=== PATIENT | male | born 1965 | race Hispanic/Latino ===

== ENCOUNTER 2019-10-19 12:45 | Inpatient (IN) | payer OTHER ==
[2019-10-19] MEDS ORDERED: MORPHINE 4 MG/ML SYR ONE (14:13)
[2019-10-19] MEDS ORDERED: ONDANSETRON 4 MG/2 ML VIAL ONE (14:13)
[2019-10-19] MEDS ORDERED: NA CHLORIDE 0.9% 1,000 ML ONE ×2 (14:13→16:35)
[2019-10-19 14:22] LABS: Absolute Lymphocytes (CBC) 4.1 K/uL (0.7-4.9); Basophils % 0.7 % (0-1.3); Hematocrit 47.1 % (39.6-49.0); Lymphocytes % 23.1 % (15.3-44.8); MPV 9.5 fL (7.6-11.3); RBC Red Blood Cell Count 4.77 M/uL (4.33-5.43)
[2019-10-19 14:29] LABS: Urine Blood NEGATIVE (NEG); Urine Glucose NEGATIVE (NEG); Urine Protein TRACE (NEG); Urine Specific Gravity 1.025 (1.005-1.030); Urine pH 5.5 (5.0-7.0)
[2019-10-19 14:36] LABS: Potassium 3.4 mmol/L (3.5-5.1)
--- NOTE | 2019-10-19 15:58 | RAD REPORT ---
EXAM DESCRIPTION: CT - Abdomen Pelvis W Contrast - 10/19/2019 3:34 pm CLINICAL HISTORY: ABD PAIN COMPARISON: No comparisons TECHNIQUE: Biphasic, helical CT imaging of the abdomen and pelvis was performed following 100 ml non -ionic IV contrast. No oral contrast. All CT scans are performed using dose optimization technique as appropriate and may include automated exposure control or mA/KV adjustment according to patient size. FINDINGS: No suspicious findings in the lung bases. Hepatomegaly is present with a mild diffuse fatty infiltration. There is subtle nodularity to the cuca er capsule. No focal liver lesion identified. Portal vein is normal. Patient is status post splenecto my. Small regenerative splenic nodules are present in the left upper quadrant. Gallbladder and biliar y tree are also without suspicious finding. No pancreatic or peripancreatic acute findings. Symmetric renal function is seen with no hydronephrosis or suspicious renal mass. No pyelonephritis o r acute parenchymal process. No bladder abnormalities. No adrenal abnormalities. No gastric abnormality seen. There are several fluid-filled nondilated small bowel loops present. Ter jeremiah ileum and ileocecal valve are normal. There is slight thickening of the tip of the cecum. The a ppendix is grossly abnormal measuring 15 mm in diameter with edematous/inflammatory stranding in the periappendiceal fat as well as wall thickening in the appendix. No appendicolith or mass lesions seen . Appendix is in a classic right lower quadrant location. Several reactive lymph nodes are seen in th e adjacent fat. No free air, abscess or other complicating factor. No hernia, mass or bulky lymphadenopathy. Patien t has nonspecific periaortic lymphadenopathy. No suspicious bony findings. IMPRESSION: Acute appendicitis. No abscess, free air or other complicating factor. Appendix is in a classic right lower quadrant location. Hepatomegaly with subtle nodularity of the liver capsule. No focal liver lesions seen. Cirrhosis or o ther hepatic parenchymal disease process may be present.
--- NOTE | 2019-10-19 16:08 | ER ---
Nurse's Notes [facility] Name: Damon Gomez Age: 54 yrs Sex: Male : 1965 Arrival Date: 10/19/2019 Time: 12:53 Bed 19 Private MD: Diagnosis: Acute appendicitis Presentation: 10/19 13:00 Presenting complaint: Patient states: lower abd pain, n/v started . Transition sv of care: patient was not received from another setting of care. Onset of symptoms was October 17, 2019. Care prior to arrival: None. 13:00 Method Of Arrival: Ambulatory sv 13:00 Acuity: GHADA 3 sv 13:00 Note translator/interpreter used ID#[id number]. sv 13:50 Risk Assessment: Do you want to hurt yourself or someone else? Patient reports no rb1 desire to harm self or others. Initial Sepsis Screen: Does the patient meet any 2 criteria? No. Patient's initial sepsis screen is negative. Does the patient have a suspected source of infection? Yes: Acute abdominal pain. Triage Assessment: 13:00 General: Appears in no apparent distress. uncomfortable, Behavior is calm, cooperative, sv appropriate for age. Pain: Complains of pain in right lower quadrant and left lower quadrant Pain currently is 8 out of 10 on a pain scale. Neuro: Level of Consciousness is awake, alert, obeys commands, Oriented to person, place, time, situation, Gait is steady. Respiratory: Respiratory effort is even, unlabored, Respiratory pattern is regular, symmetrical. Historical: - Allergies: 13:02 No Known Allergies; sv - PMHx: 13:02 None; sv - PSHx: 13:02 Spleenectomy; sv - Immunization history:: Adult Immunizations up to date. - Social history:: Smoking status: Patient/guardian denies using tobacco. - Ebola Screening: : No symptoms or risks identified at this time. Screenin:50 Abuse screen: Denies threats or abuse. Nutritional screening: No deficits noted. rb1 Tuberculosis screening: No symptoms or risk factors identified. Fall Risk None identified. Assessment: 13:50 General: Appears in no apparent distress. comfortable, Behavior is calm, cooperative. rb1 Pain: Complains of pain in lower abdomen Pain currently is 7 out of 10 on a pain scale. Neuro: Level of Consciousness is awake, alert, obeys commands, Oriented to person, place, time, situation. Cardiovascular: Capillary refill < 3 seconds is brisk in bilateral fingers. Respiratory: Airway is patent Respiratory effort is even, unlabored, Respiratory pattern is regular, symmetrical. GI: Bowel sounds present X 4 quads. Reports nausea, vomiting, since . : No signs and/or symptoms were reported regarding the genitourinary system. Derm: Skin is pink, warm \T\ dry. 14:50 Reassessment: Patient appears in no apparent distress at this time. No changes from rb1 previously documented assessment. 15:50 Reassessment: Patient appears in no apparent distress at this time. Patient and/or rb1 family updated on plan of care and expected duration. Pain level reassessed. Patient is alert, oriented x 3, equal unlabored respirations, skin warm/dry/pink. Pain 2/10. 16:50 Reassessment: Patient appears in no apparent distress at this time. No changes from rb1 previously documented assessment. Gave report to SETH Javier from OR. Information from the SBAR was given. All questions asked and answered. Vital Signs: 13:03 BP 130 / 97; Pulse 108; Resp 16; Temp 98.2; Pulse Ox 99% ; Weight 80.29 kg; Pain 8/10; sv 14:40 BP 139 / 89; Pulse 94; Resp 18; Temp 98.4(O); Pulse Ox 100% on R/A; mh5 15:46 BP 166 / 97; Pulse 100; Resp 18; Temp 98.3(O); Pulse Ox 95% on R/A; mh5 16:45 BP 143 / 98; Pulse 92; Resp 17; Pulse Ox 95% on R/A; Pain 2/10; rb1 ED Course: 12:53 Patient arrived in ED. as 12:59 Arm band placed on. sv 13:02 Triage completed. sv 13:02 Thi Ny F[facility]-C [facility]. kb 13:02 Wilder Townsend MD is Attending Physician. kb 14:15 Radiology exam delayed due to lab results not completed at this time. (BUN/Creatinine). bq 14:17 CBC with Diff Sent. mh5 14:17 Basic Metabolic Panel Sent. mh5 14:18 Patient has correct armband on for positive identification. Placed in gown. Bed in low mh5 position. Call light in reach. Side rails up X 1. Adult w/ patient. Warm blanket given. Pulse ox on. NIBP on. 14:18 Initial lab(s) drawn, by me, sent to lab. Urine collected: clean catch specimen, tea mh5 colored. Inserted saline lock: 20 gauge in right antecubital area, using aseptic technique. Blood collected. 14:26 Carine Rascon RN is Primary Nurse. rb1 15:34 CT Abd/Pelvis - IV Contrast Only In Process Unspecified. EDMS 15:34 CT completed. Patient tolerated procedure well. Patient moved back from CT. bq 16:07 Dionte Matthews MD is Hospitalizing Provider. kb 16:56 No provider procedures requiring assistance completed. Patient admitted, IV remains in rb1 place. Administered Medications: 14:16 Drug: NS 0.9% 1000 ml Route: IV; Rate: 1000 ml; Site: right antecubital; mg2 15:22 Follow up: IV Status: Completed infusion rb1 14:16 Drug: morphine 4 mg Route: IVP; Site: right antecubital; mg2 14:30 Follow up: Response: No adverse reaction; Pain is decreased rb1 14:17 Drug: Zofran 4 mg Route: IVP; Site: right antecubital; mg2 14:30 Follow up: Response: No adverse reaction rb1 16:40 Drug: Rocephin 1 grams Route: IV; Rate: calculated rate; Site: right antecubital; rb1 16:55 Follow up: Response: No adverse reaction; IV Status: Completed infusion rb1 16:40 Drug: Flagyl 500 mg Volume: 100 ml; Route: IVPB; Rate: 200 ml/hr; Infused Over: 30 rb1 mins; Site: right antecubital; 16:55 Follow up: IV Status: Infusion continued upon admission rb1 16:40 Drug: NS 0.9% 1000 ml Route: IV; Rate: 125 ml/hr; Site: right antecubital; rb1 16:55 Follow up: IV Status: Infusion continued upon admission rb1 Outcome: 16:07 Decision to Hospitalize by Provider. kb 16:56 Admitted to OR accompanied by nurse, family with patient, via wheelchair, with chart, rb1 Report called to Report given to SETH Javier from OR 16:56 Condition: stable 16:56 Instructed on the need for admit. 16:57 Patient left the ED. rb1 Signatures: Dispatcher [employer] EDMS Thi Ny, HIGH SCHOOL SOCIAL STUDIES TEACHER-C [employer] SOC[employer] STUDIES TEACHER-Concepcion Padgett, RN RN Starr Jane Amelia as Barber, Rebecca, RN RN rb1 Jenny Matthews [facility] Arie Garcia RN RN mg2
--- NOTE | 2019-10-19 16:08 | EDPHYS ---
Physician Documentation [facility] Name: Damon Gomez Age: 54 yrs Sex: Male : 1965 Arrival Date: 10/19/2019 Time: 12:53 Bed 19 Private MD: ED Physician Wilder Townsend HPI: 10/19 14:27 This 54 yrs old Male presents to ER via Ambulatory with complaints of kb Abdominal Pain. 14:27 The patient presents with abdominal pain in the lower abdomen. Onset: The kb symptoms/episode began/occurred 2 day(s) ago. The symptoms do not radiate. Associated signs and symptoms: Pertinent positives: nausea and vomiting, fever. The symptoms are described as constant. Modifying factors: The symptoms are alleviated by nothing, the symptoms are aggravated by nothing. Severity of pain: At its worst the pain was moderate in the emergency department the pain is unchanged. The patient has not experienced similar symptoms in the past. went to [facility] and was sent here. Historical: - Allergies: 13:02 No Known Allergies; sv - PMHx: 13:02 None; sv - PSHx: 13:02 Spleenectomy; sv - Immunization history:: Adult Immunizations up to date. - Social history:: Smoking status: Patient/guardian denies using tobacco. - Ebola Screening: : No symptoms or risks identified at this time. ROS: 14:27 ENT: Negative for injury, pain, and discharge, Neck: Negative for injury, pain, and kb swelling, Cardiovascular: Negative for chest pain, palpitations, and edema, Respiratory: Negative for shortness of breath, cough, wheezing, and pleuritic chest pain, Back: Negative for injury and pain, MS/Extremity: Negative for injury and deformity, Skin: Negative for injury, rash, and discoloration, Neuro: Negative for headache, weakness, numbness, tingling, and seizure. 14:27 Constitutional: Positive for fever. 14:27 Abdomen/GI: Positive for abdominal pain, nausea and vomiting. Exam: 14:29 Constitutional: This is a well developed, well nourished patient who is awake, alert, kb and in no acute distress. Head/Face: Normocephalic, atraumatic. Chest/axilla: Normal chest wall appearance and motion. Nontender with no deformity. No lesions are appreciated. Cardiovascular: Regular rate and rhythm with a normal S1 and S2. No gallops, murmurs, or rubs. Normal PMI, no JVD. No pulse deficits. Respiratory: Lungs have equal breath sounds bilaterally, clear to auscultation and percussion. No rales, rhonchi or wheezes noted. No increased work of breathing, no retractions or nasal flaring. Back: No spinal tenderness. No costovertebral tenderness. Full range of motion. Skin: Warm, dry with normal turgor. Normal color with no rashes, no lesions, and no evidence of cellulitis. MS/ Extremity: Pulses equal, no cyanosis. Neurovascular intact. Full, normal range of motion. Neuro: Awake and alert, GCS 15, oriented to person, place, time, and situation. Cranial nerves II-XII grossly intact. Motor strength 5/5 in all extremities. Sensory grossly intact. Cerebellar exam normal. Normal gait. 14:29 Abdomen/GI: Inspection: abdomen appears normal, Bowel sounds: normal, in all quadrants, Palpation: soft, in all quadrants, mild abdominal tenderness, in the right upper quadrant, moderate abdominal tenderness, in the right lower quadrant and left lower quadrant. Vital Signs: 13:03 BP 130 / 97; Pulse 108; Resp 16; Temp 98.2; Pulse Ox 99% ; Weight 80.29 kg; Pain 8/10; sv 14:40 BP 139 / 89; Pulse 94; Resp 18; Temp 98.4(O); Pulse Ox 100% on R/A; mh5 15:46 BP 166 / 97; Pulse 100; Resp 18; Temp 98.3(O); Pulse Ox 95% on R/A; mh5 16:45 BP 143 / 98; Pulse 92; Resp 17; Pulse Ox 95% on R/A; Pain 2/10; rb1 MDM: 13:47 Patient medically screened. kb 14:29 Data reviewed: vital signs, nurses notes. Data interpreted: Pulse oximetry: on room air kb is 99 %. Interpretation: normal. 16:06 Counseling: I had a detailed discussion with the patient and/or guardian regarding: the kb historical points, exam findings, and any diagnostic results supporting the discharge/admit diagnosis, lab results, radiology results, the need for further work-up and treatment in the hospital. Physician consultation: Dionte Matthews MD was contacted at 16:06, regarding admission, to the medical/surgical unit. patient's condition, and will see patient in ED, shortly. 10/19 14:02 Order name: Basic Metabolic Panel; Complete Time: 14:56 kb 10/19 14:02 Order name: CBC with Diff; Complete Time: 14:30 kb 10/19 14:02 Order name: CT Abd/Pelvis - IV Contrast Only; Complete Time: 16:00 kb 10/19 14:17 Order name: Urine Dipstick--Ancillary (enter results); Complete Time: 14:30 ms 10/19 14:02 Order name: IV Saline Lock; Complete Time: 14:16 kb 10/19 14:02 Order name: Labs collected and sent; Complete Time: 14:16 kb Administered Medications: 14:16 Drug: NS 0.9% 1000 ml Route: IV; Rate: 1000 ml; Site: right antecubital; mg2 15:22 Follow up: IV Status: Completed infusion rb1 14:16 Drug: morphine 4 mg Route: IVP; Site: right antecubital; mg2 14:30 Follow up: Response: No adverse reaction; Pain is decreased rb1 14:17 Drug: Zofran 4 mg Route: IVP; Site: right antecubital; mg2 14:30 Follow up: Response: No adverse reaction rb1 16:40 Drug: Rocephin 1 grams Route: IV; Rate: calculated rate; Site: right antecubital; rb1 16:55 Follow up: Response: No adverse reaction; IV Status: Completed infusion rb1 16:40 Drug: Flagyl 500 mg Volume: 100 ml; Route: IVPB; Rate: 200 ml/hr; Infused Over: 30 rb1 mins; Site: right antecubital; 16:55 Follow up: IV Status: Infusion continued upon admission rb1 16:40 Drug: NS 0.9% 1000 ml Route: IV; Rate: 125 ml/hr; Site: right antecubital; rb1 16:55 Follow up: IV Status: Infusion continued upon admission rb1 Disposition: 17:07 Co-signature as Attending Physician, Wilder Townsend MD. rn Disposition: 10/19/19 16:07 Hospitalization ordered by Dionte Matthews for Observation. Preliminary diagnosis is Acute appendicitis. - Bed requested for Telemetry/MedSurg (observation). - Status is Observation. rb1 - Condition is Stable. - Problem is new. - Symptoms are unchanged. UTI on Admission? No Signatures: Dispatcher [employer] EDMS Thi Ny, LISA-C ACID SPLICER-Concepcion Padgett, RN RN sv Wilder Townsend MD MD rn Barber, Rebecca, RN RN rb1 Arie Garcia RN RN mg2 Corrections: (The following items were deleted from the chart) 16:57 16:07 Hospitalization Ordered by Dointe Matthews MD for Observation. Preliminary rb1 diagnosis is Acute appendicitis. Bed requested for Telemetry/MedSurg (observation). Status is Observation. Condition is Stable. Problem is new. Symptoms are unchanged. UTI on Admission? No. kb
[2019-10-19] MEDS ORDERED: METRONIDAZOLE 500mg IVPB 500 MG/100 ML BAG IV ONE (16:35)
[2019-10-19] MEDS ORDERED: CEFTRIAXONE/SWI 1gm 1 GM/10 ML SYR ONE (16:35)
[2019-10-19] MEDS: MORPHINE 4 MG/ML SYR ONE ×3 (17:06→19:11)
[2019-10-19] MEDS: KETOROLAC 30 MG/ML INJ ONE ×2 (17:06→19:06)
[2019-10-19] MEDS ORDERED: SUCCINYLCHOLINE 20 MG/ML (10 ML) IV ONE (17:32)
[2019-10-19] MEDS ORDERED: MORPHINE 4 MG/ML SYR IV PRN (17:44)
[2019-10-19] MEDS ORDERED: ONDANSETRON 4 MG/2 ML VIAL IV PRN (17:44)
[2019-10-19] MEDS ORDERED: propofoL 200 MG/20 ML VIAL IV ONE (17:50)
[2019-10-19] MEDS ORDERED: ROCURONIUM 50 MG/5 ML VIAL IV ONE (17:50)
[2019-10-19] MEDS ORDERED: FENTANYL CITR 100 MCG/2 ML ONE ×2 (17:50→18:13)
[2019-10-19] MEDS ORDERED: MIDAZOLAM HCL 2 MG/2 ML INJ ONE (17:51)
--- NOTE | 2019-10-19 18:04 | P.BOP ---
Preoperative diagnosis: acute appendicitis Postoperative diagnosis: perforated appendicitis with intrabdominal abscess Primary procedure: Laparoscopic appendectomy and drainage of intraperironeal abscess Estimated blood loss: <10cc Specimen: lillie Findings: see dictation Anesthesia: General Complications: None Drain(s): LUCERO drain Transferred to: Recovery Room Condition: Good
[2019-10-19] MEDS ORDERED: GLYCOPYRROLATE 0.2 MG/ML SYR ONE (18:32)
[2019-10-19] MEDS ORDERED: NEOSTIGMINE 1 MG/ML -5 ML ONE (18:32)
[2019-10-19] MEDS: NA CHLORIDE 0.9% 1,000 ML IV SCH (20:44)
[2019-10-19] MEDS ORDERED: CIPROFLOXACIN 400mg IV 400 MG/200 ML BAG IV SCH (21:00)
[2019-10-19 22:31] VITALS: BMI 27.2
--- NOTE | 2019-10-19 22:44 | HP ---
Date of Admission: 10/19/2019 Reason For Service: Right lower quadrant abdominal pain, acute appendicitis. History Of Present Illness: This is the case of a 54-year-old patient, who comes to us with right lo wer quadrant tenderness since last , 48 hours ago associated with nausea, vomiting. He did n ot look for medical attention until a few hours ago when he noticed he was not getting better. He do es not have any primary doctor in the area. He has not had any previous colonoscopy. No dysuria, he maturia, hematochezia, melena. No recent traveling out of the country. No family member sick at formerly [facility]. 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 Past Medical History: None that we know off since he does not have a primary doctor. Past Surgical History: A splenectomy for what he has a left upper quadrant transverse incision. Medications: None. Social History: He does not smoke. He does not drink alcohol. Family History: Noncontributory. Review of Systems: Ten points otherwise unremarkable. Physical Examination: General: Patient is awake and alert. HEENT: Pupils are equal and reactive, anicteric. Neck: Supple. Chest: Clear. Heart: S1, S2. Abdomen: Right lower quadrant tenderness with Rovsing sign positive. Psoas sign positive. Rectal and genitalia: Deferred. Extremities: Good capillary refill. Neurologic: Cranial nerves 2 through 12 grossly within normal limits. Laboratory Data: Blood work shows WBC count of 17.7, hemoglobin of 16.1 with potassium 3.4. Urine f or blood and nitrites negative. Imaging Procedure: CAT scan of the abdomen and pelvis interpret by Dr. Diallo as acute appendicitis . Assessment: This is a 54-year-old patient with acute appendicitis. The benefits, alternatives, and risks of laparoscopic, possible open appendectomy fully explained which include but are not limited t o infection, bleeding, damage to adjacent structures as complication, myocardial infarction even deat h. He also understands this not relieve any symptoms, he might need more than one surgical intervent ion. He signed the consent. OR was emergently called. We also explained to him the importance in t he next 3 of 4 weeks to have his colonoscopy done since we still have to rule out an explaining for n eoplasia and the large bowel. HM/MODL Voice ID: [id number]
[2019-10-19] MEDS ORDERED: NA CHLORIDE 0.9% 100 ML IV ONE ×2 (23:13)
[2019-10-19] MEDS ORDERED: PIPERACIL/TAZO 3.375 GM VIAL IV ONE (23:18)
--- NOTE | 2019-10-19 23:20 | OP ---
Date of Procedure: 10/19/2019 Surgeon: Dionte Matthews MD Diagnosis: Acute appendicitis, perforated appendicitis with intraabdominal abscess. Procedure: Emergent laparoscopic appendectomy with drainage of intraperitoneal abscess. Specimen: Appendix with a culture of the abscess. Findings: Patient has a pocket of pus around the appendix from a perforated appendix. Anesthesia: General plus local. Indications: This is the case of a 54-year-old patient who comes with acute abdominal pain since , more than 2 days ago. Was seen in ER, diagnosed with acute appendicitis. Taken to the O R after fully explained the benefits, alternatives, and risks of laparoscopic, possible open appendec emilio, which include not limited to infection, bleeding, damage to adjacent structures, anesthesia com plication, negative appendix, NC, and even . He also understands this may not relieve any sympt oms. He might need more than surgical intervention. He understood, signed a consent. Description Of Procedure: Patient was brought to the operating room, placed in supine position. Ane sthesia was done without complication. Abdominal area was prepped and draped in sterile fashion. Ma rcaine 0.5% injectable anesthetic followed by sharp incision of the skin in the infraumbilical region . Incision was carried down to fascia, which was opened under direct vision. Peritoneum was encount ered, opened under direct vision. Vicryl #1 placed inside the fascia. Candace trocar was carefully i ntroduced. Pneumoperitoneum was obtained. Immediately, we paid attention to the right lower quadran t. We noticed a very inflamed appendix with omental covering the appendix already. I placed 2 more trocars, 5 mm each one of them, in the suprapubic and left lower quadrant under direct visualization. This allowed me to remove that omentum from around the appendix and we noticed when we mobilized e appendix, there was a pocket of pus with abscess underneath that appendix. Carefully the pus was d rained. Culture was obtained. We were able to visualize the base of the appendix seems to be spared from this so we transected that with an Endo SERGEY 45 mm 3.5, and the mesoappendix with an Endo SERGEY 45 mm 2.5. Appendix removed from the abdominal cavity using an EndoCatch through the umbilical incisio n. The area was profusely irrigated with several liters of saline. After that, I proceeded to place a LUCERO drain without abscess, and going also into the perineum. Secured the LUCERO drain into the skin. It was placed using one of the trocar sites. We inspected the area once again. No bowel leak and no bleeding. At that moment, I proceeded to remove the trocars under direct vision. Deflated pneumope ritoneum. Closed the fascia with #1 Vicryl. Irrigated subcutaneous tissue, closed that with 3-0 chr omic and skin with levon. Sponge count and instrument counts were correct. Patient tolerated the procedure well. Patient was sent to recovery in stable condition. Patient will remain in next few d ays in the hospital with IV antibiotics. SEVEN/TATO Voice ID: [id number] Report ID: [id number]
[2019-10-19] MEDS: PIPER/TAZO/NS 3.375gm 3.375 GM/100 ML BAG IVPB SCH (23:48)
[2019-10-20] MEDS: NA CHLORIDE 0.9% 1,000 ML IV SCH ×3 (01:18→16:59)
[2019-10-20] MEDS: ACETAMINOPHEN 325 MG TABLET PO PRN ×2 (01:22→16:59)
[2019-10-20 04:21] LABS: Absolute Lymphocytes (CBC) 3.4 K/uL (0.7-4.9); Basophils % 0.7 % (0-1.3); Hematocrit 39.9 % (39.6-49.0); Lymphocytes % 22.4 % (15.3-44.8); MPV 9.4 fL (7.6-11.3); RBC Red Blood Cell Count 4.01 M/uL (4.33-5.43)
[2019-10-20 04:34] LABS: ALT/SGPT 150 U/L (12-78); AST/SGOT 77 U/L (15-37); Alkaline Phosphatase 73 U/L (45-117); BUN Blood Urea Nitrogen 18 mg/dL (7-18); Bicarbonate 25 mmol/L (21-32); Bilirubin Direct 0.5 mg/dL (0-0.2); Bilirubin Total 0.9 mg/dL (0.2-1.0); Glucose Level 93 mg/dL (74-106); Potassium 3.8 mmol/L (3.5-5.1); Protein, Total 6.8 g/dL (6.4-8.2); Sodium Level 141 mmol/L (136-145)
[2019-10-20] MEDS: PIPER/TAZO/NS 3.375gm 3.375 GM/100 ML BAG IVPB SCH ×4 (05:30→23:03)
[2019-10-20] MEDS: HYDROCODONE/APAP 5/325 MG TAB PO PRN ×2 (10:51→20:41)
[2019-10-20] MEDS ORDERED: INFLUENZA VACCINE (for 3y+) 0.5 ML DOSE IMVAC ONE (12:00)
--- NOTE | 2019-10-20 19:18 | PN ---
Date of Progress Note: 10/20/2019 Diagnosis: Acute perforated appendicitis. Procedure: Laparoscopic appendectomy. Subjective: Patient is improving, still have fever of 102. Today, he feels a little bit better. No nausea, no vomiting. Objective: Chest: Clear. Abdomen: Soft and depressible. LUCERO drain, seropurulent drainage. EXTREMITIES: Good capillary refill. Laboratory Data: Blood work came down from WBC count of 17 to 15. Plan: Continue IV antibiotics, clear liquid diet, ambulation, incentive spirometry. Patient will re main here for the next few days on IV antibiotics due to severity of his disease. HM/MODL Voice ID: [id number] Report ID: [id number]
[2019-10-21] MEDS: NA CHLORIDE 0.9% 1,000 ML IV SCH ×3 (01:35→14:59)
[2019-10-21] MEDS: PIPER/TAZO/NS 3.375gm 3.375 GM/100 ML BAG IVPB SCH ×3 (05:19→17:14)
[2019-10-21 06:11] LABS: Absolute Lymphocytes (CBC) 2.7 K/uL (0.7-4.9); Basophils % 1.3 % (0-1.3); Lymphocytes % 23.2 % (15.3-44.8); MPV 9.6 fL (7.6-11.3); RBC Red Blood Cell Count 4.13 M/uL (4.33-5.43)
[2019-10-21] MEDS: HYDROCODONE/APAP 5/325 MG TAB PO PRN (08:31)
--- NOTE | 2019-10-21 15:06 | P.CNS ---
Date of Consult: 10/21/19 Reason for Consult: Hypertension Primary Care Provider: None Chief Complaint: Appendicitis History of Present Illness: Patient is a 54-year-old male with no significant past medical history comes in with abdominal pain for 48 hr prior to presentation. He had nausea and vomiting. No travel outside the country no diarrhea. Patient's symptoms were constant moderate progressively worsening. Patient was found to have acute appendicitis with abscess on imaging studies. His white blood cell count was elevated. Patient was admitted under surgery service and was taken to the OR by Dr. Matthews. Patient did well postoperatively. Currently on antibiotics. Hospitalist service was consulted for medical management regarding his elevated blood pressure. Patient has no prior history of hypertension. Patient denies any blurry vision. Does report some headaches on and off. Had been chalking off the headaches and elevated blood pressure due to work. Currently patient's blood pressure is in the 150s to 160 systolic. Troponin level was negative Allergies No Known Allergies Allergy (Verified 10/19/19 19:30) Home medications list reviewed: Yes Home Medications: NK [No Home Meds] 10/19/19 - Past Medical/Surgical History Diabetic: No Past Medical History: Patient denies medical history -: Splenectomy - Social History Smoking Status: Never smoker Alcohol use: Yes CD- Drugs: No Caffeine use: Yes Place of Residence: Home Review of Systems 10-point ROS is otherwise unremarkable Gastrointestinal: As per HPI Physical Examination Temp Pulse Resp BP Pulse Ox 98.9 F 90 18 156/96 H 97 10/21/19 12:00 10/21/19 12:00 10/21/19 12:00 10/21/19 12:00 10/21/19 12:00 General: Alert, Oriented x3, Mild distress HEENT: Atraumatic, PERRLA, Mucous membr. moist/pink, EOMI, Sclerae nonicteric Neck: Supple, 2+ carotid pulse no bruit, JVD not distended Respiratory: Clear to auscultation bilaterally, Normal air movement Cardiovascular: No edema, Normal pulses, Regular rate/rhythm, Normal S1 S2 Gastrointestinal: Normal bowel sounds, No masses, No rebound, No guarding, Other (Incision site clean dry intact. Humberto drain in place with serous fluid), Distended, Tenderness Musculoskeletal: No clubbing, No erythema, No tenderness Integumentary: No rashes, No erythema Neurological: Normal speech, Normal strength at 5/5 x4 extr, Normal tone, Cranial nerves 3-12 intact, Normal affect Laboratory Last Values WBC 11.7 K/uL (4.3-10.9) H D 10/21/19 05:25 RBC 4.13 M/uL (4.33-5.43) L 10/21/19 05:25 Hgb 13.8 g/dL (13.6-17.9) 10/21/19 05:25 Hct 41.0 % (39.6-49.0) 10/21/19 05:25 MCV 99.5 fL (80-100) 10/21/19 05:25 MCH 33.4 pg (27.0-35.0) 10/21/19 05:25 MCHC 33.5 g/dL (32.0-36.0) 10/21/19 05:25 RDW 13.6 % (12.1-15.2) 10/21/19 05:25 Plt Count 222 K/uL (152-406) D 10/21/19 05:25 MPV 9.6 fL (7.6-11.3) 10/21/19 05:25 Neutrophils % 64.2 % (41.7-73.7) 10/21/19 05:25 Lymphocytes % 23.2 % (15.3-44.8) 10/21/19 05:25 Monocytes % 10.7 % (3.3-12.3) 10/21/19 05:25 Eosinophils % 0.6 % (0-4.4) 10/21/19 05:25 Basophils % 1.3 % (0-1.3) 10/21/19 05:25 Absolute Neutrophils 7.5 K/uL (1.8-8.0) 10/21/19 05:25 Absolute Lymphocytes 2.7 K/uL (0.7-4.9) 10/21/19 05:25 Absolute Monocytes 1.3 K/uL (0.1-1.3) 10/21/19 05:25 Absolute Eosinophils 0.1 K/uL (0-0.5) 10/21/19 05:25 Absolute Basophils 0.2 K/uL (0-0.5) 10/21/19 05:25 Sodium 141 mmol/L (136-145) 10/20/19 04:01 Potassium 3.8 mmol/L (3.5-5.1) 10/20/19 04:01 Chloride 110 mmol/L (98-107) H 10/20/19 04:01 Carbon Dioxide 25 mmol/L (21-32) 10/20/19 04:01 BUN 18 mg/dL (7-18) 10/20/19 04:01 Creatinine 0.78 mg/dL (0.55-1.3) 10/20/19 04:01 Estimated GFR > 90 mL/min (=/>90) 10/20/19 04:01 Glucose 93 mg/dL (74-106) 10/20/19 04:01 Lactic Acid 1.2 mmol/L (0.4-2.0) 10/19/19 22:44 Calcium 7.8 mg/dL (8.5-10.1) L D 10/20/19 04:01 Total Bilirubin 0.9 mg/dL (0.2-1.0) 10/20/19 04:01 Direct Bilirubin 0.5 mg/dL (0-0.2) H 10/20/19 04:01 AST 77 U/L (15-37) H 10/20/19 04:01 ALT 150 U/L (12-78) H 10/20/19 04:01 Alkaline Phosphatase 73 U/L (45-117) 10/20/19 04:01 Serum Total Protein 6.8 g/dL (6.4-8.2) 10/20/19 04:01 Albumin 3.0 g/dL (3.4-5.0) L 10/20/19 04:01 Globulin 3.8 g/dL (2.3-3.5) H 10/20/19 04:01 Albumin/Globulin Ratio 0.8 (1.1-1.8) L 10/20/19 04:01 Urine pH 5.5 (5.0-7.0) 10/19/19 14:17 Ur Specific [place] 1.025 (1.005-1.030) 10/19/19 14:17 Urine Ketones Negative (NEG) 10/19/19 14:17 Urine Blood Negative (NEG) 10/19/19 14:17 Urine Nitrite Negative (NEG) 10/19/19 14:17 Ur Leukocyte Esterase Negative (NEG) 10/19/19 14:17 Urine Glucose Negative (NEG) 10/19/19 14:17 Urine Total Protein Trace (NEG) 10/19/19 14:17 Imagings Data: CT scan abdomen and pelvis IMPRESSION: Acute appendicitis. No abscess, free air or other complicating factor. Appendix is in a classic right lower quadrant location. Hepatomegaly with subtle nodularity of the liver capsule. No focal liver lesions seen. Cirrhosis or other hepatic parenchymal disease process may be present. - Problems (1) Acute appendicitis with appendiceal abscess Current Visit: Yes Status: Acute Plan: Continue IV antibiotics. Management as per Dr. Matthews (2) Blood pressure elevated without history of HTN Current Visit: Yes Status: Acute Plan: Will add chlorthalidone. Monitor potassium level. Hydralazine IV 10 mg q 6 hr p.r.n. for systolic greater than 160. Patient recommended to obtain blood pressure cuff when he goes home and to keep a log of his BP and follow up with his primary care physician for further adjustments of his medications (3) Hypokalemia Current Visit: Yes Status: Acute Plan: Corrected. Will continue to monitor (4) Elevated liver enzymes Current Visit: Yes Status: Acute Plan: CT scan shows hepatomegaly with nodularity possible cirrhosis. Patient does not report a strong alcohol history. Does drink wine every now and then. His liver enzymes are also elevated. Would recommend dedicated MRI of the abdomen as an outpatient and GI workup. Will continue to monitor LFTs. (5) Status post splenectomy Current Visit: Yes Status: Acute Plan: Recommend Pen-VK 500 mg p.o. daily for the rest of his life as prophylaxis
[2019-10-21] MEDS: HYDRALAZINE HCL 20 MG/ML VIAL IV PRN (15:36)
[2019-10-21] MEDS: CHLORTHALIDONE 25 MG TAB PO SCH (17:12)
[2019-10-21] MEDS: ACETAMINOPHEN 325 MG TABLET PO PRN (21:05)
[2019-10-22] MEDS: PIPER/TAZO/NS 3.375gm 3.375 GM/100 ML BAG IVPB SCH ×4 (00:05→17:00)
[2019-10-22] MEDS: NA CHLORIDE 0.9% 1,000 ML IV SCH ×3 (05:21→22:00)
[2019-10-22] MEDS: CHLORTHALIDONE 25 MG TAB PO SCH (08:32)
[2019-10-22 08:39] LABS: Absolute Lymphocytes (CBC) 2.9 K/uL (0.7-4.9); Basophils % 1.2 % (0-1.3); Hematocrit 41.8 % (39.6-49.0); MPV 9.2 fL (7.6-11.3); RBC Red Blood Cell Count 4.25 M/uL (4.33-5.43)
--- NOTE | 2019-10-22 13:39 | P.PN ---
Subjective Date of Service: 10/22/19 Primary Care Provider: None Chief Complaint: Appendicitis No BM. + Flatus. not ambulating yet. Physical Examination - Vital Signs Temperature: 98.5 F Blood Pressure: 170/85 Pulse: 85 Respirations: 17 Pulse Ox (%): 94 - Physical Exam General: Alert, In no apparent distress HEENT: Atraumatic, PERRLA, EOMI Neck: Supple, JVD not distended Respiratory: Clear to auscultation bilaterally, Normal air movement Cardiovascular: Regular rate/rhythm, Normal S1 S2 Gastrointestinal: Normal bowel sounds, Tenderness (mild) Musculoskeletal: No tenderness Integumentary: No rashes Neurological: Normal speech, Normal tone, Normal affect Lymphatics: No axilla or inguinal lymphadenopathy Assessment And Plan - Plan #Acute appendicitis-status post appendectomy. -On Liquid diet, defer advancement to GS - IV. -postoperative care including incentive spirometry and out of bed. # Elevated blood pressure-denies any prior history of hypertension. -blood pressure is better controlled with oral antihypertensive. -monitor blood pressure closely. #Elevated LFT- needs outpatient work up. DVT ppx patient is full code
[2019-10-22] MEDS: HYDRALAZINE HCL 20 MG/ML VIAL IV PRN (15:35)
[2019-10-22] MEDS: ACETAMINOPHEN 325 MG TABLET PO PRN (18:10)
[2019-10-22 19:02] LABS: Absolute Lymphocytes (CBC) 3.5 K/uL (0.7-4.9); Basophils % 0.7 % (0-1.3); Hematocrit 44.5 % (39.6-49.0); RBC Red Blood Cell Count 4.57 M/uL (4.33-5.43)
--- NOTE | 2019-10-22 20:53 | PN ---
Subjective: Status post ruptured appendicitis with intraabdominal abscess. Patient is doing well. Finally not having nausea or vomiting. He feels great. He is ambulating. No fever. Objective: Chest: Clear. Abdomen: Soft and depressible. Intact surgical site. Laboratory Data: WBC count 11. Plan: Advance his diet. He wants to go home. I asked him to stay until tomorrow since we have to m robson sure he received proper antibiotics since it was ruptured. Tomorrow, if he has no fever, then we may send him home with p.o. antibiotics. SEVEN/TATO Voice ID: [id number] Report ID: [id number]
[2019-10-23 04:24] LABS: Absolute Lymphocytes (CBC) 4.4 K/uL (0.7-4.9); Basophils % 1.1 % (0-1.3); Hematocrit 41.7 % (39.6-49.0); Lymphocytes % 33.3 % (15.3-44.8); MPV 9.2 fL (7.6-11.3); RBC Red Blood Cell Count 4.29 M/uL (4.33-5.43)
[2019-10-23 04:35] LABS: BUN Blood Urea Nitrogen 13 mg/dL (7-18); Bicarbonate 28 mmol/L (21-32); Glucose Level 89 mg/dL (74-106); Potassium 3.1 mmol/L (3.5-5.1); Sodium Level 135 mmol/L (136-145)
[2019-10-23] MEDS: PIPER/TAZO/NS 3.375gm 3.375 GM/100 ML BAG IVPB SCH ×3 (05:19→12:08)
[2019-10-23] MEDS ORDERED: POTASSIUM 25 MEQ EFFERV TAB PO ONE (06:00)
[2019-10-23] MEDS ORDERED: AMLODIPINE 5 MG TAB PO SCH (09:00)
[2019-10-23] MEDS: CHLORTHALIDONE 25 MG TAB PO SCH (09:05)
--- NOTE | 2019-10-23 09:58 | P.DS ---
Admission Date: 10/19/19 Discharge Date: 10/23/19 Primary Care Provider: None Disposition: ROUTINE DISCHARGE Discharge Condition: GOOD Reason for Admission: Appendicitis Vital Signs/Physical Exam: Temp Pulse Resp BP Pulse Ox 98.6 F 82 17 159/96 H 97 10/23/19 08:00 10/23/19 09:05 10/23/19 08:00 10/23/19 09:05 10/23/19 08:00 General: Alert, In no apparent distress, Oriented x3, Cooperative HEENT: Normocephalic, PERRLA, Sclerae nonicteric Neck: Supple Respiratory: Clear to auscultation bilaterally Cardiovascular: No edema, Normal pulses Gastrointestinal: Normal bowel sounds, Soft and benign Musculoskeletal: No erythema, No tenderness, No warmth Integumentary: No rashes, No breakdown, No erythema, No warmth, No cyanosis Neurological: Normal speech Laboratory Data at Discharge: WBC 13.2 K/uL (4.3-10.9) H 10/23/19 03:30 Hgb 14.5 g/dL (13.6-17.9) 10/23/19 03:30 Hct 41.7 % (39.6-49.0) 10/23/19 03:30 Plt Count 287 K/uL (152-406) 10/23/19 03:30 Sodium 135 mmol/L (136-145) L 10/23/19 03:30 Potassium 3.1 mmol/L (3.5-5.1) L 10/23/19 03:30 BUN 13 mg/dL (7-18) 10/23/19 03:30 Creatinine 0.64 mg/dL (0.55-1.3) 10/23/19 03:30 Glucose 89 mg/dL (74-106) 10/23/19 03:30 Total Bilirubin 0.9 mg/dL (0.2-1.0) 10/20/19 04:01 AST 77 U/L (15-37) H 10/20/19 04:01 ALT 150 U/L (12-78) H 10/20/19 04:01 Alkaline Phosphatase 73 U/L (45-117) 10/20/19 04:01 Home Medications: Codeine/APAP [Tylenol W/Codeine #3 tab] 1 tab PO Q6HP PRN #30 tab 10/23/19 levoFLOXacin [Levaquin] 750 mg PO DAILY #10 tab 10/23/19 metroNIDAZOLE [Flagyl] 500 mg PO Q6H #28 tablet 10/23/19 New Medications: Codeine/APAP [Tylenol W/Codeine #3 tab] 1 tab PO Q6HP PRN #30 tab PRN Reason: Pain levoFLOXacin [Levaquin] 750 mg PO DAILY #10 tab metroNIDAZOLE [Flagyl] 500 mg PO Q6H #28 tablet Patient Discharge Instructions: may take a shower with dressing off. LUCERO to bulb suction, record output q24h Diet: AHA Activity: No lifting more than 10 lbs Followup: Dinote Matthews MD [ACTIVE - CAN ADMIT] -
[2019-10-23 12:03] VITALS: TEMP 98
[2019-10-23 12:11] VITALS: BP 148/82
--- NOTE | 2019-10-23 12:21 | P.PN ---
Subjective Date of Service: 10/23/19 Primary Care Provider: None Chief Complaint: Appendicitis Patient is doing well. Denies any new concerns. Physical Examination - Vital Signs Temperature: 98.0 F Blood Pressure: 148/82 Pulse: 88 Respirations: 17 Pulse Ox (%): 98 - Physical Exam General: Alert, In no apparent distress HEENT: Atraumatic, PERRLA, EOMI Neck: Supple, JVD not distended Respiratory: Clear to auscultation bilaterally, Normal air movement Cardiovascular: Regular rate/rhythm, Normal S1 S2 Gastrointestinal: Normal bowel sounds, Tenderness Musculoskeletal: No tenderness Integumentary: No rashes Neurological: Normal speech, Normal tone, Normal affect Lymphatics: No axilla or inguinal lymphadenopathy Assessment And Plan - Plan #Acute appendicitis-status post appendectomy. -On Liquid diet, defer advancement to GS - IV. -postoperative care including incentive spirometry and out of bed. # Elevated blood pressure-denies any prior history of hypertension. -all discharge patient home on amlodipine 10 mg 1 tab p.o. daily. #Elevated LFT- needs outpatient work up. DVT ppx patient is full code
[2019-10-23 12:35] VITALS: O2SAT 98
== END 2019-10-23 13:27 | disposition home or self-care (01) | DRG 340 ==
LOC: ER 12:45 → UNDOADMOB 16:11 → ERHOLD 16:11 → 4TH 18:36
PROVIDERS: ADMIT Surgery; ATTEND Hospitalist
PROC: 0W9G4ZZ Drainage of Peritoneal Cavity, Percutaneous Endoscopic Approach (ICD-10-PCS; 2019-10-19)
PROC: 0DTJ4ZZ Resection of Appendix, Percutaneous Endoscopic Approach (ICD-10-PCS; principal; 2019-10-19 17:00)
DX: K35.33 Acute appendicitis with perforation, localized peritonitis, and gangrene, with abscess (principal); E87.6 Hypokalemia; R16.0 Hepatomegaly, not elsewhere classified; R03.0 Elevated blood-pressure reading, without diagnosis of hypertension; Z90.81 Acquired absence of spleen
CPT/HCPCS: 36415; 74177; 80048; 80076; 81003; 83605; 84132; 85025; 87070; 87075; 87205; 88304; 96361; 96374; 96375; 99285; J0330; J0360; J0696; J2250; J2405; J2543; J2704; J2710; J3010; J7030; Q9967